=== PATIENT | male | born 1965 | race Caucasian/White ===

== ENCOUNTER 2016-07-27 10:26 | Emergency (ER) | payer BC ==
[2016-07-27 10:58] VITALS: BP 146/85
[2016-07-27] MEDS ORDERED: Albuterol/Ipratropium 3.0-0.5 MG/3 ML Neb Soln NEB ONE (11:10)
[2016-07-27] MEDS ORDERED: predniSONE 20 MG Tab PO ONE (11:10)
[2016-07-27] MEDS ORDERED: Azithromycin 250 MG Tab PO ONE (11:10)
--- NOTE | 2016-07-27 11:15 | EDM.PDOC ---
ED HISTORY OF PRESENT ILLNESS - General Chief Complaint: Respiratory Problem Stated Complaint: COLD SYMPTOMS Time Seen by Provider: 07/27/16 10:45 Source of Information: Reports: Patient History Limitations: Reports: No limitations - History of Present Illness INITIAL COMMENTS - FREE TEXT/NARRATIVE: PT STATES HE DEVELOPED COUGH AND CHEST CONGESTION OVER PAST WEEK. GETTING WORSE AND HE HEARS WHEEZING. DENIES FEVER, CP, SOB, N/V/D, OUT OF COUNTRY TRAVEL, OR FAMILY MEMBERS WITH SAME SYMPTOMS Timing/Duration: Reports: Week(s): Severity: mild Location, General: Reports: chest Improves with: Reports: None Worsens with: Reports: None Associated Symptoms (General): Reports: cough, cough w sputum. Denies: fever/ chills, nausea/vomiting - Related Data Allergies/ADRs: Allergies Allergy/AdvReac Type Severity Reaction Status Date / Time No Known Drug Allergies Allergy Cannot Verified 07/27/16 10:58 Remember Home Meds: Home Meds Azithromycin [Zithromax] 500 mg PO DAILY #4 tablet 07/27/16 [Rx] Diclofenac Sodium [Diclofenac Sodium] 75 mg PO DAILY 07/27/16 [History] Gluc 2KCl/Chondr/Dean Hy/Hy Ac [Glucosamine & Chondroitin Cap] 1 each PO DAILY 07/27/16 [History] Lysine 500 mg PO DAILY PRN 07/27/16 [History] Pantoprazole Sodium [Pantoprazole Sodium] 40 mg PO DAILY 07/27/16 [History] Prednisone [IJD: predniSONE] 20 mg PO WITHBREAKFAST #3 tab 07/27/16 [Rx] ED ROS GENERAL - Review of Systems Review Of Systems: ROS reveals no pertinent complaints other than HPI. Constitutional: Reports: no symptoms HEENT: Reports: No symptoms Respiratory: Reports: Wheezing, Cough, Sputum Cardiovascular: Reports: No symptoms Endocrine: Reports: no symptoms GI/Abdominal: Reports: No symptoms : Reports: no symptoms Musculoskeletal: Reports: no symptoms Skin: Reports: no symptoms Neurological: Reports: No Symptoms Psychiatric: Reports: No symptoms Hematologic/Lymphatic: Reports: no symptoms Immunologic: Reports: no symptoms ED EXAM, GENERAL - Physical Exam Exam: See Below Exam Limited By: No limitations General Appearance: alert, WD/WN, no apparent distress Eye Exam: bilateral eye: normal inspection Ears: normal external exam, normal canal, normal TMs Nose: normal inspection, normal mucosa, no blood Throat/Mouth: Normal inspection, Normal oropharynx, No airway compromise Head: atraumatic, normocephalic Neck: normal inspection, supple Respiratory/Chest: no respiratory distress, rhonchi (APICAL / CLEARS WITH COUGH) , wheezing (END EXP) Cardiovascular: regular rate, rhythm, no murmur Extremities: normal inspection, no pedal edema Neurological: alert, oriented, normal cognition Psychiatric: normal affect, normal mood Skin Exam: Warm, Dry, Intact, Normal color, No rash Lymphatic: no adenopathy Course - Vital Signs Last Recorded V/S: Last Vital Signs Temp 98.4 F 07/27/16 10:55 Pulse 84 07/27/16 10:55 Resp 18 07/27/16 10:55 BP 146/85 H 07/27/16 10:55 Pulse Ox 95 07/27/16 10:55 Departure - Departure Time of Disposition: 11:19 Disposition: Home, Self-Care 01 Condition: good Clinical Impression: Bronchitis Instructions: Acute Bronchitis, [id number] Additional Instructions: FOLLOW UP WITH PCP IN NEXT 2-3 DAYS - Assessment/Plan Assessment:: BRONCHITIS Plan: ZITHRO / PRED / F-U WITH PCP IN 2 DAYS
== END 2016-07-27 11:40 | disposition home or self-care (01) ==
LOC: KA.ED 10:26
DX: J40 Bronchitis, not specified as acute or chronic (principal); Z79.899 Other long term (current) drug therapy
CPT/HCPCS: 94640; 99283; A9270

== ENCOUNTER 2019-09-26 08:29 | Day surgery (SDC) | payer BC ==
[~2019-09-26 08:29] MED LIST: Lactated Ringers 1,000 ML IV SCH; Midazolam 1 MG/ML 2 ML SDV ONE; Propofol 200 MG/20 ML SDV ONE; Sodium Chloride 0.9% 10 ML Syringe FLUSH PRN
[2019-09-26] MEDS ORDERED: Midazolam 1 MG/ML 2 ML SDV IV ONE (08:30)
[2019-09-26] MEDS ORDERED: Glycopyrrolate 0.2 MG/ML 5 ML MDV IV ONE (08:30)
[2019-09-26] MEDS ORDERED: Propofol 200 MG/20 ML SDV IV ONE (08:30)
--- NOTE | 2019-09-26 09:55 | PCM.PRNOTE ---
- Free Text/Narrative Note: PROCEDURE PERFORMED: Esophagogastroduodenoscopy with biopsy PRE-PROCEDURE DIAGNOSIS/INDICATION FOR PROCEDURE: Persistent GERD and epigastric pain CONSENT: Informed consent was obtained prior to the procedure after discussion of the risks (including pain, bleeding, infection, perforation, need for further procedures, adverse reaction to anesthesia, cardiovascular event), benefits and alternatives and expected outcomes. Verbal consent given and consent form signed. PROCEDURAL PAUSE: Completed SEDATION: Per anesthesia DESCRIPTION OF PROCEDURE: Patient was brought back to the operating room and placed in a left lateral decubitus position. Bite block placed. After adequate sedation and anesthetic was administered, endoscope was inserted into the patient's mouth and was passed easily through the esophagus and stomach into the duodenum without difficulty. Examined duodenum normal appearing. Pylorus normal appearing aside from mild gastritis for which biopsies were obtained. Stomach, including viewing in retroflexion, normal appearing aside from 2 <0.5cm sessile polyps removed with cold forceps. Gastroesophageal junction at 42cm from the incisors. No hiatal hernia present. Esophagus normal appearing aside from mild tortuosity, but without stricture. The scope was removed without difficulty. Patient tolerated the procedure well. No complications. IMPRESSION: Esophagogastroduodenoscopy performed revealing: - Mildly torturous esophagus - Mild gastritis, biopsy pathology now pending - 2 <0.5cm gastric polyps s/p polypectomy, pathology now pending PLAN: - Will contact the patient when pathology results received. - Recommend trial of PPI BID with follow-up in the clinic in about 2 weeks for reassessment. - Consider addition of H2B at bedtime. - Consider pH or manometry testing in the future if symptoms persistent.
[2019-09-26 10:14] VITALS: BP 149/70; PULSE 66
== END 2019-09-26 11:05 | disposition home or self-care (01) ==
LOC: KA.SDS 08:29
PROVIDERS: ATTEND Family Medicine
DX: K29.50 Unspecified chronic gastritis without bleeding (principal); K31.89 Other diseases of stomach and duodenum; K31.7 Polyp of stomach and duodenum; K21.9 Gastro-esophageal reflux disease without esophagitis; G47.33 Obstructive sleep apnea (adult) (pediatric); E66.9 Obesity, unspecified; Z11.59 Encounter for screening for other viral diseases; I10 Essential (primary) hypertension; Z98.890 Other specified postprocedural states; Z79.899 Other long term (current) drug therapy; Z91.011 Allergy to milk products; Z68.35 Body mass index [BMI] 35.0-35.9, adult
CPT/HCPCS: 43239; 87635; J2250; J2704; J3490; J7120; U0002

== ENCOUNTER 2020-08-18 09:15 | Emergency (ER) | payer BC ==
[2020-08-18 09:35] VITALS: BP 164/101; PULSE 94
--- NOTE | 2020-08-18 09:35 | EDM.PDOC ---
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 Patient was putting his hands in a tight spot and scratched up his arms. His concern is he has a small bruise on his right lower forearm 2 cm diameter with a small abrasion in the center of it. He denies anything bite him he wonders if it is from him working on the engine. He questions if a warm bolt may have pressed on his arm during the process. He did apply some A,D,E cream and triple antibiotic ointment yesterday which seemed to help symptoms. His tetanus shot is up-to-date. Denies any systemic symptoms, redness, any real swelling, or pain. - Related Data Allergies Allergy/AdvReac Type Severity Reaction Status Date / Time Dairy Products Allergy Abdominal Verified 09/23/19 10:56 Pain No Known Drug Allergies Allergy Cannot Verified 09/23/19 10:56 Remember Home Meds: Home Meds Diclofenac Sodium 75 mg PO BID 07/27/16 [History] Lysine 500 mg PO TID PRN 07/27/16 [History] Acetaminophen [Acetaminophen Extra Strength] 1,000 mg PO BID PRN 09/23/19 [History] Cannabidiol (Cbd) Extract [CBD Oil] 2 drop PO BID 09/23/19 [History] Cholecalciferol (Vitamin D3) [Vitamin D3] 2,000 unit PO DAILY 09/23/19 [History] Ezetimibe [Zetia] 10 mg PO DAILY 09/23/19 [History] FLUoxetine HCl [Fluoxetine HCl] 40 mg PO DAILY 09/23/19 [History] Gabapentin [Neurontin] 100 - 300 mg PO BID 09/23/19 [History] Saccharomyces Boulardii [Probiotic] 250 mg PO DAILY PRN 09/23/19 [History] calcium polycarbophiL [Fiber Tabs] 1 tab PO DAILY 09/23/19 [History] Omeprazole 20 mg PO BID #0 09/26/19 [Rx] Past Medical History HEENT History: Reports: None Cardiovascular History: Reports: High Cholesterol, Hypertension Respiratory History: Reports: Sleep Apnea Gastrointestinal History: Reports: GERD Musculoskeletal History: Reports: Arthritis, Back Pain, Chronic, Fibromyalgia Other Musculoskeletal History: myalgia Psychiatric History: Reports: Anxiety, Depression - Past Surgical History HEENT Surgical History: Reports: Tonsillectomy Cardiovascular Surgical History: Reports: None Respiratory Surgical History: Reports: None GI Surgical History: Reports: Colonoscopy Neurological Surgical History: Reports: Discectomy, Laminectomy, Other (See Below) Other Neurological Surgeries/Procedures: wrist fx surgery Social & Family History - Caffeine Use Caffeine Use: Reports: Coffee, Soda, Tea Review of Systems - Review of Systems Review Of Systems: Comprehensive ROS is negative, except as noted in HPI. Skin: Reports: Bruising (bilateral arms), Wound ED EXAM, GENERAL - Physical Exam Exam: See Below Exam Limited By: No Limitations General Appearance: Alert, WD/WN, No Apparent Distress Extremities: Normal Inspection, Normal Range of Motion, Non-Tender, No Pedal Edema, Normal Capillary Refill. No: Slow Capillary Refill, Joint Swelling, Increased Warmth, Pallor, Redness Psychiatric: Normal Affect, Normal Mood Skin Exam: Warm, Dry, Intact, Ecchymosis, Wound/Incision, Other (one small 2 cm diamater annular ecchymosis to his right medial forearm surrounding a small abrasion. bilateral arms have superifical lacerations and abrasions t hroughout). No: Erythema Course - Orders/Labs/Meds Orders: Active Orders 24 hr Category Date Time Status Bacitracin [Bacitracin Oint] Med 08/18/20 14:00 Ordered See Dose Instructions TOP TID Medication Orders Bacitracin (Bacitracin Oint 30 Gm Tube) 0 gm TOP TID [facility] Meds: Medications Generic Name Dose Route Start Last Admin Trade Name Freq PRN Reason Stop Dose Admin Bacitracin 0 gm 08/18/20 14:00 Bacitracin Oint 30 Gm Tube TOP TID [facility] - Re-Assessments/Exams Free Text/Narrative Re-Assessment/Exam: 08/18/20 09:31 No signs of cellulitis. No signs of compartment syndrome. No signs of infection involving antibiotic at this time will use topical antibiotic ointment tetanus shot status is up-to-date. Caution discussed with patient patient understands but wound care very superficial lacerations throughout his bilateral arms with a few abrasions and one area with ecchymosis in the stages of healing. Discussed Keflex prescription written and sent with patient to fill later if symptoms of redness swelling warmth increased pain to start spreading from the site consider soft tissue infection may start antibiotic. Welcome return anytime for wound check in the clinic. Departure - Departure Time of Disposition: 09:32 Disposition: Home, Self-Care 01 Condition: Good Clinical Impression: Abrasion of skin, Ecchymosis Traumatic ecchymosis of right forearm Qualifiers: Encounter type: initial encounter Qualified Code(s): S50.11XA - Contusion of right forearm, initial encounter - Discharge Information *PRESCRIPTION DRUG MONITORING PROGRAM REVIEWED*: No *COPY OF PRESCRIPTION DRUG MONITORING REPORT IN PATIENT REYES: No Referrals: Jh Mistry MD [Primary Care Provider] - Additional Instructions: apply bacitracin ointment three times daily to prevent infection keep area clean and dry watch out for signs and symptoms of infection - My Orders Last 24 Hours: My Active Orders 08/18/20 14:00 Bacitracin [Bacitracin Oint] See Dose Instructions TOP TID - Assessment/Plan Last 24 Hours: My Active Orders 08/18/20 14:00 Bacitracin [Bacitracin Oint] See Dose Instructions TOP TID
[2020-08-18] MEDS ORDERED: Bacitracin Oint 30 GM Tube TOP SCH (14:00)
== END 2020-08-18 09:45 | disposition home or self-care (01) ==
LOC: KA.ED 09:15
DX: S50.11XA Contusion of right forearm, initial encounter (principal); I10 Essential (primary) hypertension; K21.9 Gastro-esophageal reflux disease without esophagitis; Z79.899 Other long term (current) drug therapy; Z91.011 Allergy to milk products; X58.XXXA Exposure to other specified factors, initial encounter
CPT/HCPCS: 99283